=== PATIENT | female | born 1980 | race Caucasian/White ===

== ENCOUNTER 2017-06-17 18:19 | Emergency (ER) | payer OTHER ==
[2017-06-17 18:40] VITALS: BP 101/71
--- NOTE | 2017-06-17 18:40 | EDM.PDOC ---
ED HPI GENERAL MEDICAL PROBLEM - General Chief Complaint: Abdominal Pain Stated Complaint: R ABDOMINAL PAIN Time Seen by Provider: 06/17/17 18:40 Source of Information: Reports: Patient History Limitations: Reports: No Limitations - History of Present Illness INITIAL COMMENTS - FREE TEXT/NARRATIVE: Patient is a 37-year-old female presents ED complaining of epigastric discomfort with burning sensation and also right lower quadrant abdominal discomfort that intermittent worse with palpation and with walking. With walking patient does experience pain to the right anterior thigh. Pain initially started approximately one week ago has progressively become more constant as of recent. She did become nauseous earlier today after eating. Pain is sharp in nature. She was feverish last night and awoke sweating. There's been no diarrhea no dysuria no abnormal movements or blood present. Her last menstrual cycle was April 2018. There is a chance of being . Otherwise she offers no additional complaints. Patient still has her appendix. Gallbladder has been removed. 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 Denies: Anorexia, Black Stool, Bloody Stool, Hematemesis, Hematochezia, Vomiting : Reports: No Symptoms Musculoskeletal: Reports: No Symptoms Neurological: Reports: No Symptoms ED EXAM, GI/ABD - Physical Exam Exam: See Below Exam Limited By: No Limitations General Appearance: Alert, WD/WN, No Apparent Distress Ears: Hearing Grossly Normal Nose: Normal Inspection Throat/Mouth: Normal Voice, No Airway Compromise Neck: Normal Inspection, Supple Respiratory/Chest: No Respiratory Distress, Lungs Clear, Normal Breath Sounds, No Accessory Muscle Use Cardiovascular: Normal Peripheral Pulses, Regular Rate, Rhythm, No Murmur GI/Abdominal Exam: Normal Bowel Sounds, Soft, No Organomegaly, No Distention, Tender (Epigastric region. Minimal discomfort noted RLQ. She describes it as a pressure sensation. No pain with movement of right leg. ) Back Exam: Normal Inspection. No: CVA Tenderness (L), CVA Tenderness (R) Extremities: Normal Inspection Neurological: Alert, Oriented, CN II-XII Intact, Normal Cognition, No Motor/ Sensory Deficits Psychiatric: Normal Affect, Normal Mood Skin Exam: Warm, Dry, Intact, Normal Color, No Rash Course - Vital Signs Last Recorded V/S: Last Vital Signs Temp 97.6 F 06/17/17 18:30 Pulse 71 06/17/17 18:30 Resp 18 06/17/17 18:30 BP 101/71 06/17/17 18:30 Pulse Ox 100 06/17/17 18:30 - Orders/Labs/Meds Orders: Active Orders 24 hr Category Date Time Status Peripheral IV Care [RC] . DIRECTED Care 06/17/17 18:58 Active TSH [CHEM] Stat Lab 06/17/17 19:57 Received Sodium Chloride 0.9% [Normal Saline] 1,000 ml Med 06/17/17 19:00 Active IV ASDIRECTED Sodium Chloride 0.9% [Saline Flush] Med 06/17/17 18:58 Active 10 ml FLUSH ASDIRECTED PRN Peripheral IV Insertion Adult [OM.PC] Stat Oth 06/17/17 18:58 Ordered Medication Orders Sodium Chloride (Normal Saline) 1,000 mls @ 125 mls/hr IV ASDIRECTED OLAMIDE Last Admin: 06/17/17 19:59 Dose: 125 mls/hr Sodium Chloride (Saline Flush) 10 ml FLUSH ASDIRECTED PRN PRN Reason: Keep Vein Open Last Admin: 06/17/17 19:59 Dose: 10 ml Labs: Laboratory Tests 06/17/17 06/17/17 06/17/17 Range/Units 19:30 19:57 19:57 WBC 5.93 (3.98-10.04) K/mm3 RBC 4.55 (3.98-5.22) M/mm3 Hgb 12.9 (11.2-15.7) gm/L Hct 39.0 (34.1-44.9) % MCV 85.7 (79.4-94.8) fl MCH 28.4 (25.6-32.2) pg MCHC 33.1 (32.2-35.5) g/dl RDW Std Deviation 40.9 (36.4-46.3) fL Plt Count 267 (182-369) K/mm3 MPV 9.7 (9.4-12.3) fl Neut % (Auto) 54.1 (34.0-71.1) % Lymph % (Auto) 36.1 (19.3-51.7) % Bledsoe % (Auto) 7.1 (4.7-12.5) % Eos % (Auto) 1.9 (0.7-5.8) Baso % (Auto) 0.8 (0.1-1.2) % Neut # (Auto) 3.21 (1.56-6.13) K/mm3 Lymph # (Auto) 2.14 (1.18-3.74) K/mm3 Bledsoe # (Auto) 0.42 H (0.24-0.36) K/mm3 Eos # (Auto) 0.11 (0.04-0.36) K/mm3 Baso # (Auto) 0.05 (0.01-0.08) K/mm3 Sodium 141 (136-145) mEq/L Potassium 3.5 (3.5-5.1) mEq/L Chloride 105 (98-107) mEq/L Carbon Dioxide 30 (21-32) mEq/L Anion Gap 9.5 (5-15) BUN 15 (7-18) mg/dL Creatinine 0.7 (0.55-1.02) mg/dL Est Cr Clr Drug Dosing 93.17 mL/min Estimated GFR (MDRD) > 60 (>60) mL/min BUN/Creatinine Ratio 21.4 H (14-18) Glucose 101 (74-106) mg/dL Calcium 9.7 (8.5-10.1) mg/dL Total Bilirubin 0.4 (0.2-1.0) mg/dL AST 22 (15-37) U/L ALT 24 (14-59) U/L Alkaline Phosphatase 50 (46-116) U/L C-Reactive Protein < 0.2 (<1.0) mg/dL Total Protein 7.3 (6.4-8.2) g/dl Albumin 3.9 (3.4-5.0) g/dl Globulin 3.4 gm/dL Albumin/Globulin Ratio 1.2 (1-2) Lipase 247 (73-393) U/L HCG, Qual (NEGATIVE) Urine Color Yellow (Yellow) Urine Appearance Clear (Clear) Urine pH 7.0 (5.0-8.0) Ur Specific [place] 1.015 (1.005-1.030) Urine Protein Negative (Negative) Urine Glucose (UA) Negative (Negative) Urine Ketones Negative (Negative) Urine Occult Blood Negative (Negative) Urine Nitrite Negative (Negative) Urine Bilirubin Negative (Negative) Urine Urobilinogen 0.2 (0.2-1.0) Ur Leukocyte Esterase Negative (Negative) Urine RBC 0-5 (0-5) /hpf Urine WBC 0-5 (0-5) /hpf Ur Epithelial Cells 5-10 H (0-5) /hpf Urine Bacteria Few (FEW) /hpf Urine Mucus Not seen (FEW) /hpf 06/17/17 Range/Units 19:57 WBC (3.98-10.04) K/mm3 RBC (3.98-5.22) M/mm3 Hgb (11.2-15.7) gm/L Hct (34.1-44.9) % MCV (79.4-94.8) fl MCH (25.6-32.2) pg MCHC (32.2-35.5) g/dl RDW Std Deviation (36.4-46.3) fL Plt Count (182-369) K/mm3 MPV (9.4-12.3) fl Neut % (Auto) (34.0-71.1) % Lymph % (Auto) (19.3-51.7) % Bledsoe % (Auto) (4.7-12.5) % Eos % (Auto) (0.7-5.8) Baso % (Auto) (0.1-1.2) % Neut # (Auto) (1.56-6.13) K/mm3 Lymph # (Auto) (1.18-3.74) K/mm3 [place] # (Auto) (0.24-0.36) K/mm3 Eos # (Auto) (0.04-0.36) K/mm3 Baso # (Auto) (0.01-0.08) K/mm3 Sodium (136-145) mEq/L Potassium (3.5-5.1) mEq/L Chloride (98-107) mEq/L Carbon Dioxide (21-32) mEq/L Anion Gap (5-15) BUN (7-18) mg/dL Creatinine (0.55-1.02) mg/dL Est Cr Clr Drug Dosing mL/min Estimated GFR (MDRD) (>60) mL/min BUN/Creatinine Ratio (14-18) Glucose (74-106) mg/dL Calcium (8.5-10.1) mg/dL Total Bilirubin (0.2-1.0) mg/dL AST (15-37) U/L ALT (14-59) U/L Alkaline Phosphatase (46-116) U/L C-Reactive Protein (<1.0) mg/dL Total Protein (6.4-8.2) g/dl Albumin (3.4-5.0) g/dl Globulin gm/dL Albumin/Globulin Ratio (1-2) Lipase (73-393) U/L HCG, Qual Negative (NEGATIVE) Urine Color (Yellow) Urine Appearance (Clear) Urine pH (5.0-8.0) Ur Specific [place] (1.005-1.030) Urine Protein (Negative) Urine Glucose (UA) (Negative) Urine Ketones (Negative) Urine Occult Blood (Negative) Urine Nitrite (Negative) Urine Bilirubin (Negative) Urine Urobilinogen (0.2-1.0) Ur Leukocyte Esterase (Negative) Urine RBC (0-5) /hpf Urine WBC (0-5) /hpf Ur Epithelial Cells (0-5) /hpf Urine Bacteria (FEW) /hpf Urine Mucus (FEW) /hpf Meds: Medications Generic Name Dose Route Start Last Admin Trade Name Freq PRN Reason Stop Dose Admin Sodium Chloride 1,000 mls @ 125 mls/hr 06/17/17 19:00 06/17/17 19:59 Normal Saline IV 125 mls/hr ASDIRECTED OLAMIDE Administration Sodium Chloride 10 ml 06/17/17 18:58 06/17/17 19:59 Saline Flush FLUSH 10 ml ASDIRECTED PRN Administration Keep Vein Open Discontinued Medications Generic Name Dose Route Start Last Admin Trade Name Freq PRN Reason Stop Dose Admin Al Hydroxide/Mg Hydroxide 30 0 ml 06/17/17 18:58 06/17/17 19:59 ml/ Lidocaine HCl 15 ml PO 06/17/17 18:59 45 ml ONETIME ONE Administration - Re-Assessments/Exams Free Text/Narrative Re-Assessment/Exam: IV established with normal saline 125 mL per hour. Ordered a GI cocktail. Initial labs and studies include CBC, chem 14, hCG, lipase, UA, and CRP. Labs reviewed: CBC, chemistry, and UA were essentially normal. Lipase is 247. CRP less than 0.2. HCG negative. Discussed options with the patient. Patient does have a history of constipation with x-rays in the past noting increased stool pattern to the right hemicolon. At this point we'll go ahead discharge patient home with instructions to start taking MiraLAX. Return precautions were discussed with the patient. Departure - Departure Time of Disposition: 20:44 Disposition: Home, Self-Care 01 Condition: Good Clinical Impression: Abdominal pain Qualifiers: Abdominal location: epigastric Qualified Code(s): R10.13 - Epigastric pain - Discharge Information Instructions: Constipation, Adult, [id number], Abdominal Pain, Adult, Easy-to -Read Referrals: PCP,None [Primary Care Provider] - Forms: ED Department Discharge, ED Return to Work/School Form Additional Instructions: As discussed with history of constipation and x-ray of the abdomen revealing copious amounts of stool in the past with similar symptoms as of today we'll treat her constipation. Will have you take one capful of MiraLAX daily with copious amounts of water and orange juice. Increase fiber in your diet. In addition for acid reflux you may take Prilosec 20 mg every day half-hour prior to eating every morning. Please follow up with PCP next week for reevaluation. Return to the ED as needed for any new or worsening symptoms. - My Orders Last 24 Hours: My Active Orders 06/17/17 18:58 Peripheral IV Care [RC] . DIRECTED Sodium Chloride 0.9% [Saline Flush] 10 ml FLUSH ASDIRECTED PRN Peripheral IV Insertion Adult [OM.PC] Stat 06/17/17 19:00 Sodium Chloride 0.9% [Normal Saline] 1,000 ml IV ASDIRECTED 06/17/17 19:57 TSH [CHEM] Stat - Assessment/Plan Last 24 Hours: My Active Orders 06/17/17 18:58 Peripheral IV Care [RC] . DIRECTED Sodium Chloride 0.9% [Saline Flush] 10 ml FLUSH ASDIRECTED PRN Peripheral IV Insertion Adult [OM.PC] Stat 06/17/17 19:00 Sodium Chloride 0.9% [Normal Saline] 1,000 ml IV ASDIRECTED 06/17/17 19:57 TSH [CHEM] Stat
[2017-06-17] MEDS ORDERED: Alum Hydrox/Mag Hydrox/Simeth 30 ML, Lidocaine 2% 15 ML PO ONE ×2 (18:58)
[2017-06-17] MEDS ORDERED: Sodium Chloride 0.9% 10 ML Syringe FLUSH PRN (18:58)
[2017-06-17] MEDS ORDERED: Sodium Chloride 0.9% 1,000 ML IV SCH (19:00)
== END 2017-06-17 21:28 | disposition home or self-care (01) ==
LOC: JD.ED 18:19
DX: R10.13 Epigastric pain (principal); R10.31 Right lower quadrant pain
CPT/HCPCS: 36415; 80053; 81001; 83690; 84443; 84703; 85025; 86140; 96360; 99284; A9270; J7040; J7050; 99283

== ENCOUNTER 2017-11-14 08:10 | Day surgery (SDC) | payer OTHER ==
[~2017-11-14 08:10] MED LIST: Dexamethasone 4 MG/ML 5 ML MDV ONE; EPINEPHrine 1 MG/ML SDV ONE; Ketorolac 30 MG/ML SDV ONE; Lactated Ringers 1,000 ML IV SCH; Lactated Ringers 1,000 ML ONE; Lidocaine 1% 4 ML ONE; Lidocaine 1%/Sod Bicarbonate in NS 8.4% 1 ML Syringe IDERM PRN; Midazolam 1 MG/ML 2 ML SDV ONE; Ondansetron 4 MG/2 ML SDV ONE; Propofol 200 MG/20 ML SDV ONE; Rocuronium 50 MG/5 ML Vial ONE; Ropivacaine 0.5% 5 MG/ML 30 ML SDV ONE; Sodium Chloride 0.9% 10 ML Syringe FLUSH PRN; ceFAZolin 1 GM Vial ONE; fentaNYL 250 MCG/5 ML SDV ONE
[2017-11-14] MEDS ORDERED: EPINEPHrine 1 MG/ML 30 ML MDV ONE (08:16)
--- NOTE | 2017-11-14 08:47 | PCM.PREANE ---
Preanesthetic Assessment - Anesthesia/Transfusion/Family Hx Anesthesia History: Prior Anesthesia Without Reaction Type of Anesthesia Reaction: Excessive Nausea/Vomiting Family History of Anesthesia Reaction: No Transfusion History: No Prior Transfusion(s) - Review of Systems General: No Symptoms Pulmonary: No Symptoms Cardiovascular: No Symptoms, Palpitations (with anxiety) Gastrointestinal: No Symptoms Neurological: No Symptoms Other: Reports: Thyroid Problems, Anxiety - Physical Assessment NPO Status Date: 11/13/17 NPO Status Time: 23:40 Pulse: 68 O2 Sat by Pulse Oximetry: 100 Respiratory Rate: 17 Blood Pressure: 117/62 Weight: 56.2 kg ASA Class: 2 Mental Status: Alert & Oriented x3 Airway Class: Mallampati = 2 Dentition: Reports: Normal Dentition Thyro-Mental Finger Breadths: 3 Mouth Opening Finger Breadths: 3 ROM/Head Extension: Full Lungs: Clear to Auscultation, Normal Respiratory Effort Cardiovascular: Regular Rate, Regular Rhythm - Lab Values: Laboratory Last Values Urine HCG, Qual Negative (NEGATIVE) 11/14/17 08:22 MRSA (PCR) Negative 11/12/17 15:18 - Allergies Allergies/Adverse Reactions: Allergies Allergy/AdvReac Type Severity Reaction Status Date / Time No Known Allergies Allergy Verified 11/12/17 11:58 - Blood Blood Available: No Product(s) Available: None - Acknowledgements Anesthesia Type Planned: General Anesthesia Pt an Appropriate Candidate for the Planned Anesthesia: Yes Alternatives and Risks of Anesthesia Discussed w Pt/Guardian: Yes Pt/Guardian Understands and Agrees with Anesthesia Plan: Yes PreAnesthesia Questionnaire - Past Health History Medical/Surgical History: Denies Medical/Surgical History HEENT History: Reports: Impaired Vision Other HEENT History: Wears contacts or glasses. 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 Oncologic (Cancer) History: Reports: Other (See Below) Other Oncologic History: Pre-cancerous moles Dermatologic History: Reports: Psoriasis - Past Surgical History HEENT Surgical History: Reports: None Cardiovascular Surgical History: Reports: None Respiratory Surgical History: Reports: None GI Surgical History: Reports: Cholecystectomy Female Surgical History: Reports: None Musculoskeletal Surgical History: Reports: Arthroscopic Procedure - SUBSTANCE USE Smoking Status *Q: Never Smoker Recreational Drug Use History: No - HOME MEDS Home Medications: Home Meds L.acidoph,Paracasei, B.lactis [Probiotic] 1 cap PO DAILY 11/12/17 [History] Multivitamin [Multi-Vitamin Daily] 2 tab PO DAILY 11/12/17 [History] Thyroid [[place] Thyroid] 30 mg PO DAILY 11/12/17 [History] - CURRENT (IN HOUSE) MEDS Current Meds: Current Medications Lactated Ringer's (Ringers, Lactated) 1,000 mls @ 125 mls/hr IV ASDIRECTED OLAMIDE Stop: 11/14/17 23:00 Lidocaine/Sodium Bicarbonate (Buffered Lidocaine 1% In Ns 8.4%) 0.25 ml IDERM ONETIME PRN PRN Reason: Prior to IV Start Stop: 11/14/17 18:00 Sodium Chloride (Saline Flush) 10 ml FLUSH ASDIRECTED PRN PRN Reason: Keep Vein Open Stop: 11/14/17 18:00 Discontinued Medications Cefazolin Sodium (Ancef) Confirm Administered Dose 2 gm .ROUTE .STK-MED ONE Stop: 11/14/17 07:07 Dexamethasone (Dexamethasone) Confirm Administered Dose 20 mg .ROUTE .STK-MED ONE Stop: 11/14/17 07:09 Epinephrine HCl (Adrenalin) Confirm Administered Dose 1 mg .ROUTE .STK-MED ONE Stop: 11/14/17 07:51 Epinephrine HCl (Adrenalin) 3 mg .XX ONETIME ONE Stop: 11/14/17 08:17 Fentanyl (Sublimaze) Confirm Administered Dose 250 mcg .ROUTE .STK-MED ONE Stop: 11/14/17 07:07 Lactated Ringer's (Ringers, Lactated) Confirm Administered Dose 1,000 mls @ as directed .ROUTE .STK-MED ONE Stop: 11/14/17 07:07 Lidocaine HCl (Xylocaine-Mpf 1%) Confirm Administered Dose 4 mls @ as directed .ROUTE .STK-MED ONE Stop: 11/14/17 07:56 Ketorolac Tromethamine (Toradol) Confirm Administered Dose 30 mg .ROUTE .STK- MED ONE Stop: 11/14/17 07:07 Midazolam HCl (Versed 1 Mg/Ml) Confirm Administered Dose 2 mg .ROUTE .STK-MED ONE Stop: 11/14/17 07:07 Ondansetron HCl (Zofran) Confirm Administered Dose 4 mg .ROUTE .STK-MED ONE Stop: 11/14/17 07:07 Propofol (Diprivan 20 Ml) Confirm Administered Dose 200 mg .ROUTE .STK-MED ONE Stop: 11/14/17 07:07 Rocuronium [place] (Zemuron) Confirm Administered Dose 50 mg .ROUTE .STK-MED ONE Stop: 11/14/17 07:07 Ropivacaine (Naropin 0.5%) Confirm Administered Dose 30 ml .ROUTE .STK-MED ONE Stop: 11/14/17 07:52
[2017-11-14] MEDS ORDERED: Scopolamine 1.5 MG Transdermal Patch TRDERM ONE (08:49)
[2017-11-14] MEDS ORDERED: Bupivacaine 0.25% 30 ML SDV ONE (09:05)
--- NOTE | 2017-11-14 09:29 | PCM.SN ---
- Free Text/Narrative Note: Right interscalene nerve block Date: 11/14/2017 Start: 899 Time Out: 904 Stop: 916 Surgical Procedure: Right shoulder video arthroscopy Diagnosis: Right shoulder pain Current Procedure: Right interscalene block under US guidance for postoperative pain control Patient chart reviewed, risk/benefits discussed with patient, consent obtained. Patient positioned supine, monitors/alarms on, oxygen placed via nasal cannula at 2 LPM. IV sedation administered: Versed 2mg IV Fentanyl 100 mcg IV Right shoulder prepped with chloraprep x1. Sterile drapes placed with aseptic technique. Under US guidance, right subclavian artery visualized along with the brachial plexus. Plexus followed cephalad up to C6 cricoid level, and area localized with 2mls of 1% lidocaine. 22gauge 2 inch stimuplex needle inserted under US and guided to brachial plexus C5-C6 trunks with 0.44mV with stimulation of biceps noted. Stimulation abolished at 0.2mVs. 1ml of Normal Saline injected with loss of stimulation up to 0.7mA. Incremental injection of 5mls with negative aspiration prior to each injection of 0.5% ropivacaine with 1 :200,000 epinephrine. Total volume=30mls. Refer to nurses notes for vital signs. Hany Matos CRNA
--- NOTE | 2017-11-14 11:02 | PCM.POSTAN ---
POST ANESTHESIA ASSESSMENT - MENTAL STATUS Mental Status: Alert, Oriented - VITAL SIGNS Pulse Rate: 78 SaO2: 97 Resp Rate: 19 Blood Pressure: 84/53 Temperature: 36.5 C - RESPIRATORY Respiratory Status: Respiratory Rate WNL, Airway Patent, O2 Saturation Stable, Supplemental Oxygen - CARDIOVASCULAR CV Status: Pulse Rate WNL, Blood Pressure Stable - GASTROINTESTINAL GI Status: No Symptoms - PAIN Pain Score: 0 - POST OP HYDRATION Hydration Status: Adequate & Stable
[2017-11-14] MEDS ORDERED: HYDROmorphone 0.5 MG/0.5 ML Syringe IVPUSH PRN (11:04)
[2017-11-14] MEDS ORDERED: fentaNYL 100 MCG/2 ML SDV IVPUSH PRN (11:04)
[2017-11-14] MEDS ORDERED: diphenhydrAMINE 50 MG/ML SDV IVPUSH PRN (11:04)
[2017-11-14] MEDS ORDERED: Meperidine PF 50 MG/ML Syringe IVPUSH PRN (11:04)
[2017-11-14] MEDS ORDERED: Ondansetron 4 MG/2 ML SDV IVPUSH PRN (11:04)
[2017-11-14] MEDS ORDERED: Metoclopramide 10 MG/2 ML SDV IVPUSH PRN (11:04)
--- NOTE | 2017-11-14 12:30 | PCM48HPAN ---
Post Anesthesia Note - EVALUATION WITHIN 48HRS OF ANESTHETIC Vital Signs in Normal Range: Yes Patient Participated in Evaluation: Yes Respiratory Function Stable: Yes Airway Patent: Yes Cardiovascular Function Stable: Yes Hydration Status Stable: Yes Pain Control Satisfactory: Yes Nausea and Vomiting Control Satisfactory: Yes Mental Status Recovered: Yes Pulse Rate: 64 SaO2: 98 Resp Rate: 18 Temperature: 36.5 C Blood Pressure: 110/52
[2017-11-14 15:25] VITALS: BP 98/62
--- NOTE | 2017-11-19 09:48 | PCM.OPNOTE ---
- General Post-Op/Procedure Note Date of Surgery/Procedure: 11/14/17 Operative Procedure(s): right shoulder video arthroscopy with bankart repair, biceps tenodesis, and extensive debridement Pre Op Diagnosis: right shoulder anterior instability Post-Op Diagnosis: same with biceps tendinopathy Anesthesia Technique: General ET Tube, Regional Block Primary Surgeon: Mario Birmingham Anesthesia Provider: Freya Magaña Theatrical Rigger: Li Ling EBL in mLs: 5 Complications: None Condition: Good
--- NOTE | 2017-11-19 10:50 | OR ---
DATE OF OPERATION: 11/14/2017 SURGEON: Mario Birmingham MD PROCEDURE: Right shoulder video arthroscopy with anterior Bankart repair, biceps tenodesis, and extensive debridement. PREOPERATIVE DIAGNOSIS: Right shoulder anterior instability. POSTOPERATIVE DIAGNOSIS: Right shoulder anterior instability with biceps tendinopathy and bursitis. ANESTHESIA TECHNIQUE: General endotracheal intubation with regional interscalene block. ANESTHESIA PROVIDER: Freya Magaña. STRAIGHTENER AND ALIGNER: Li Ling LPN ESTIMATED BLOOD LOSS: 5 mL. COMPLICATIONS: None. CONDITION: Stable. DESCRIPTION OF PROCEDURE: The patient was identified in the preop holding area. Proper site was marked and identified by the surgeon. The patient was taken back to the operating theater where after adequate anesthesia, the patient was placed in supine on a flat top table. The patient was placed in a lazy left lateral decubitus position. A wedge was placed posteriorly. The patient was secured to the table. All bony prominences were well padded. At this time, right upper extremity was then sterilely prepped and draped in the usual sterile fashion. OR time-out was performed. The patient received 2 g of IV Ancef. A 10 pounds of traction was applied to the right upper extremity. At this time, standard posterior incision was made. The scope trocar was introduced to the glenohumeral joint. At this time, the patient was noted to have significant erythema as well as significant fraying of the attachment of the biceps with labral fraying and synovitis noted throughout the joint. The patient was noted to have complete stripping off the anterior capsule as well as anterior labrum with a small cartilage defect noted near the anterior rim of the glenoid. There was no Hill-Sachs lesion noted. The undersurface of the rotator cuff was intact. The patient was noted to have significant labral fraying throughout. At this time, an anterior portal was created with an outside-in technique. The subscapularis tendon was probed, was found to be intact. At this time with the use of a spinal needle, #2 FiberWire was passed through the biceps tendon. A biceps tenotomy was performed for later tenodesis in the rotator interval. At this time, attention was turned to the labrum. The anterior surface of the glenoid was roughened using resector as well as rasp. Once this was completed and was found to have a good bony bleeding bed, starting on the most inferior position of the glenoid a 1.9 mm labral anchor Arthrex was applied after the #2 FiberWire was passed. This was then tightened, and the anterior capsule as well as anterior labrum was noted to have a good bumper effect inferiorly. At this time in a similar fashion, 2 more anchors were placed, one at about the 3 o'clock position and one at about the 1:30 position. The anterior glenoid was noted to have a good re-tightening of the capsule and labrum anteriorly. At this time, an extensive debridement was done of all the synovitis as well as the frayed labrum posteriorly as well as superiorly. Attention was then turned to the subacromial space. At this time, the scope trocar was introduced in the subacromial space both anterior and posteriorly. The patient was noted to have significant synovitis. At this time, a debridement of the synovium as well as bursa was done at this time in the subacromial space. The rotator cuff was found to be intact. The suture limbs were found and identified anteriorly. Once tension was applied, it was noted to have very friable tissue anteriorly in the rotator interval, so at this time, it was decided we would use an anchor. The biceps tendon was then placed through a 3.0 mm Arthrex PushLock anchor. A drill hole was then drilled in the bicipital groove, and then this was placed for a biceps tenodesis in the bicipital groove. At this time, it was found to have adequate fixation. Adequate saline was irrigated through the shoulder, excess saline was drained. 3-0 nylon simple suture was used for closure of the skin. The patient was placed in a sterile soft dressing and a pillow sling and sent to PACU in stable condition. WHITNEY /[id number] CRISTIANE
== END 2017-11-14 15:09 | disposition home or self-care (01) ==
LOC: JD.SDS 08:10
PROVIDERS: ATTEND Orthopaedic Surgery
DX: M25.311 Other instability, right shoulder (principal); M75.51 Bursitis of right shoulder; J40 Bronchitis, not specified as acute or chronic; E03.9 Hypothyroidism, unspecified; Z79.899 Other long term (current) drug therapy
CPT/HCPCS: 29806; 29828; 64415; 81025; 87641; A9270; C1713; J0171; J0690; J1100; J1885; J2001; J2175; J2250; J2405; J2795; J3010; J3490; J7120; 01630; J2704

== ENCOUNTER 2018-05-31 22:10 | Emergency (ER) | payer OTHER ==
[2018-05-31 22:21] VITALS: BP 114/64
[2018-05-31] MEDS ORDERED: Fluorescein 0.6 MG Ophth Strip EYELF ONE (22:38)
[2018-05-31] MEDS ORDERED: Fluorescein 0.6 MG Ophth Strip ONE (22:39)
--- NOTE | 2018-05-31 22:56 | EDM.PDOC ---
ED HPI GENERAL MEDICAL PROBLEM - General Chief Complaint: Eye Problems Stated Complaint: eye problem Time Seen by Provider: 05/31/18 22:33 Source of Information: Reports: Patient History Limitations: Reports: No Limitations - History of Present Illness INITIAL COMMENTS - FREE TEXT/NARRATIVE: This is a 38-year-old female. She was attempting to take out her contact in the left eye and it tore and she thinks part of the contact is still in her left eye. She complains of some irritation on the lateral side of the globe. She denies any other acute symptoms. - Related Data Allergies Allergy/AdvReac Type Severity Reaction Status Date / Time No Known Allergies Allergy Verified 05/31/18 22:21 Home Meds: Home Meds L.acidoph,Paracasei, B.lactis [Probiotic] 1 cap PO DAILY 11/12/17 [History] Multivitamin [Multi-Vitamin Daily] 2 tab PO DAILY 11/12/17 [History] Thyroid [[place] Thyroid] 30 mg PO DAILY 11/12/17 [History] Past Medical History - Past Health History Medical/Surgical History: Denies Medical/Surgical History HEENT History: Reports: Impaired Vision Other HEENT History: Wears contacts or glasses. 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: Other Musculoskeletal History: Labral tear, superior glenoid labrium lesion Endocrine/Metabolic History: Reports: Hypothyroidism Other Endocrine/Metabolic History: Hypothorodism on synthroid Oncologic (Cancer) History: Reports: Other (See Below) Other Oncologic History: Pre-cancerous moles Dermatologic History: Reports: Psoriasis - Past Surgical History HEENT Surgical History: Reports: None Cardiovascular Surgical History: Reports: None Respiratory Surgical History: Reports: None GI Surgical History: Reports: Cholecystectomy Female Surgical History: Reports: None Musculoskeletal Surgical History: Reports: Arthroscopic Procedure Social & Family History - Tobacco Use Smoking Status *Q: Never Smoker Second Hand Smoke Exposure: No - Caffeine Use Caffeine Use: Reports: Coffee - Recreational Drug Use Recreational Drug Use: No ED ROS GENERAL - Review of Systems Review Of Systems: See Below Constitutional: Reports: No Symptoms HEENT: Reports: Other (left eye irritation) Respiratory: Reports: No Symptoms Cardiovascular: Reports: No Symptoms Endocrine: Reports: No Symptoms GI/Abdominal: Reports: No Symptoms : Reports: No Symptoms Musculoskeletal: Reports: No Symptoms Skin: Reports: No Symptoms Neurological: Reports: No Symptoms Psychiatric: Reports: No Symptoms ED EXAM GENERAL W FULL EYE - Physical Exam Exam: See Below Exam Limited By: No Limitations General Appearance: Alert, WD/WN, No Apparent Distress Eye Exam: Bilateral Eye: Normal Inspection, Other (The left eye suggest a torn contact in the lateral globe area) Eyelids: Bilateral: Normal Appearance Conjunctiva & Sclera: Left: Normal Appearance Cornea Exam: Left: Normal Appearance Anterior Chamber: Left: Normal Appearance Ears: Normal External Exam Nose: Normal Inspection Throat/Mouth: Normal Inspection, Normal Lips, Normal Voice, No Airway Compromise Head: Normocephalic Neck: Supple Respiratory/Chest: No Respiratory Distress Back Exam: Full Range of Motion Extremities: Normal Inspection, Normal Range of Motion Neurological: Alert, Oriented Psychiatric: Normal Affect, Normal Mood Skin Exam: Warm, Dry Course - Vital Signs Last Recorded V/S: Last Vital Signs Temp 97.1 F 05/31/18 22:19 Pulse 68 05/31/18 22:19 Resp 16 05/31/18 22:19 BP 114/64 05/31/18 22:19 Pulse Ox 99 05/31/18 22:19 - Orders/Labs/Meds Meds: Medications Discontinued Medications Generic Name Dose Route Start Last Admin Trade Name Daniele PRN Reason Stop Dose Admin Fluorescein Sodium 0.6 mg 05/31/18 22:38 Ful-Petty EYELF 05/31/18 22:39 ONETIME ONE Fluorescein Sodium Confirm 05/31/18 22:39 Ful-Petty Administered 05/31/18 22:40 Dose 0.6 mg .ROUTE .STK-MED ONE - Re-Assessments/Exams Free Text/Narrative Re-Assessment/Exam: 05/31/18 22:54 I numbed the left eye with proparacaine, using an ophthalmoscope I identified a torn contact in the lateral globe area of the left eye. I placed florescence stain in the left eye and confirmed that torn contact and removed it with some alligator forceps with no difficulty. There is no abrasion to the globe or to the cornea. Departure - Departure Time of Disposition: 22:55 Disposition: Home, Self-Care 01 Condition: Good Clinical Impression: Contact lens stuck - Discharge Information *PRESCRIPTION DRUG MONITORING PROGRAM REVIEWED*: Not Applicable *COPY OF PRESCRIPTION DRUG MONITORING REPORT IN PATIENT JULIAN: Not Applicable Referrals: Violeta Peng PA [Primary Care Provider] - Additional Instructions: I would avoid wearing a contact in the left eye for 24 hours, use artificial tears in the AM if there is any left eye irritation, follow-up with your family doctor or the ER as needed
== END 2018-05-31 22:59 | disposition home or self-care (01) ==
LOC: JD.ED 22:10
DX: T15.92XA Foreign body on external eye, part unspecified, left eye, initial encounter (principal); Z79.899 Other long term (current) drug therapy
CPT/HCPCS: 99283

== ENCOUNTER 2022-03-23 18:24 | Emergency (ER) | payer OTHER ==
[2022-03-23] MEDS ORDERED: Sodium Chloride 0.9% 10 ML Syringe FLUSH PRN (20:51)
[2022-03-23] MEDS ORDERED: Ondansetron 4 MG/2 ML SDV IVPUSH ONE (20:51)
[2022-03-23] MEDS ORDERED: HYDROmorphone 0.5 MG/0.5 ML Syringe IVPUSH ONE ×2 (20:53→22:45)
[2022-03-23] MEDS ORDERED: Sodium Chloride 0.9% 1,000 ML IV SCH (21:00)
[2022-03-23 21:46] LABS: ESTIMATED GFR 114 mL/min (>60)
[2022-03-23 23:02] VITALS: BP 103/55; PULSE 87
== END 2022-03-23 23:30 | disposition home or self-care (01) ==
LOC: JD.ED 18:24
DX: N83.202 Unspecified ovarian cyst, left side (principal); E03.9 Hypothyroidism, unspecified; Z79.899 Other long term (current) drug therapy
CPT/HCPCS: 36415; 74177; 80053; 81001; 83690; 85025; 86140; 96361; 96374; 96375; 96376; 99284; J1170; J2405; J7030

== ENCOUNTER 2022-12-27 16:24 | Inpatient (IN) | payer OTHER ==
[2022-12-27] MEDS ORDERED: Nalbuphine 10 MG/0.5 ML Syringe IVPUSH PRN (16:49)
[2022-12-27] MEDS ORDERED: Lidocaine 1% 50 ML MDV INJECT ONE (16:49)
[2022-12-27] MEDS ORDERED: Lactated Ringers 1,000 ML IV SCH (17:00)
[2022-12-27] MEDS ORDERED: Oxytocin/Lactated Ringers 10 UNIT/1,000 ML BAG IV SCH (17:00)
[2022-12-27 17:09] LABS: BASOPHILS ABSOLUTE AUTO 0.03 K/mm3 (0.01-0.08); BASOPHILS PERCENT AUTO 0.3 % (0.1-1.2); EOSINOPHILS ABSOLUTE AUTO 0.06 K/mm3 (0.04-0.36); EOSINOPHILS PERCENT AUTO 0.7 (0.7-5.8); HEMATOCRIT 37.3 % (34.1-44.9); HEMOGLOBIN 12.6 gm/dl (11.2-15.7); IMMATURE GRAN ABSOLUTE AUTO 0.04 K/mm3 (0.00-0.10); IMMATURE GRAN PERCENT AUTO 0.4 % (<=1.0); LYMPHOCYTES ABSOLUTE AUTO 1.64 K/mm3 (1.18-3.74); LYMPHOCYTES PERCENT AUTO 18.3 % (19.3-51.7); MEAN CORPUSCULAR HEMOGLOBIN 30.4 pg (25.6-32.2); MEAN CORPUSCULAR HGB CONC 33.8 g/dl (32.2-35.5); MEAN CORPUSCULAR VOLUME 90.1 fl (79.4-94.8); MEAN PLATELET VOLUME 11.1 fl (9.4-12.3); MONOCYTES ABSOLUTE AUTO 0.74 K/mm3 (0.24-0.36); MONOCYTES PERCENT AUTO 8.2 % (4.7-12.5); NEUTROPHILS ABSOLUTE AUTO 6.46 K/mm3 (1.56-6.13); NEUTROPHILS PERCENT AUTO 72.1 % (34.0-71.1); PLATELET COUNT,PLT 201 K/mm3 (182-369); RED BLOOD CELL COUNT 4.14 M/mm3 (3.98-5.22); WHITE BLOOD CELL COUNT,WBC 8.97 K/mm3 (3.98-10.04)
[2022-12-27] MEDS ORDERED: Witch Hazel Medicated Pads 40/Jar TOP PRN (22:27)
[2022-12-27] MEDS ORDERED: Benzocaine/Menthol 20%-0.5% Spray 78 GM Cannister TOP PRN (22:27)
[2022-12-27] MEDS ORDERED: Docusate Sodium 100 MG Cap PO PRN (22:27)
[2022-12-27] MEDS ORDERED: Acetaminophen 325 MG Tab PO PRN (22:27)
[2022-12-27] MEDS: Ibuprofen 600 MG Tab PO PRN (23:15)
[2022-12-28] MEDS ORDERED: Prenatal Multivitamin with Calcium/Folic Acid/Iron Tab PO SCH (09:00)
[2022-12-28] MEDS: Thyroid 60 MG Tab PO SCH ×2 (09:12→15:39)
[2022-12-28] MEDS: Ibuprofen 600 MG Tab PO PRN ×3 (09:12→21:58)
[2022-12-29 05:47] VITALS: BP 104/60; PULSE 55
== END 2022-12-29 10:20 | disposition home or self-care (01) | DRG 807 ==
LOC: JD.OB 16:24 → OBSVTOIN 19:51 → JD.OB 19:52
PROVIDERS: ADMIT Family Medicine; ATTEND Family Medicine
PROC: 10E0XZZ Delivery of Products of Conception, External Approach (ICD-10-PCS; principal; 2022-12-27)
PROC: 10907ZC Drainage of Amniotic Fluid, Therapeutic from Products of Conception, Via Natural or Artificial Opening (ICD-10-PCS; 2022-12-27)
PROC: 3E033VJ Introduction of Other Hormone into Peripheral Vein, Percutaneous Approach (ICD-10-PCS; 2022-12-27)
DX: O99.284 Endocrine, nutritional and metabolic diseases complicating childbirth (principal); Z37.0 Single live birth; E03.9 Hypothyroidism, unspecified; O99.52 Diseases of the respiratory system complicating childbirth; J45.20 Mild intermittent asthma, uncomplicated; O70.0 First degree perineal laceration during delivery; Z3A.38 38 weeks gestation of pregnancy; Z79.899 Other long term (current) drug therapy; Z86.16 Personal history of COVID-19; Z90.49 Acquired absence of other specified parts of digestive tract; Z98.890 Other specified postprocedural states; Z67.11 Type A blood, Rh negative
CPT/HCPCS: 36415; 59025; 59409; 85025; 86592; A9270-GY; J2300; J7120